=== PATIENT | male | born 1990 | race Caucasian/White ===

== ENCOUNTER 2019-11-08 14:18 | Outpatient (CLI) | payer OTHER, SELFPAY ==
--- NOTE | 2019-11-08 14:26 | XR_ITS ---
WS: [id number] CERVICAL SPINE 3 VIEWS HISTORY: NECK PAIN, DORSALGIA COMPARISON: None. Mild straightening of the normal cervical lordosis. Small endplate osteophytes. C7-T1 and the upper t horacic vertebral bodies are not well visualized. Lateral masses of C1 and C2 are aligned odontoid is intact. XR/XR cervical spine 3V* [id number] IMPRESSION: 1. C1-C6 demonstrate mild spondylosis. 2. Cervical thoracic junction is incompletely visualized.
--- NOTE | 2019-11-08 14:26 | XR_ITS ---
WS: [id number] THORACIC SPINE TECHNIQUE: AP and lateral views are performed. HISTORY: BACK PAIN, DORSALGIA COMPARISON: None available. Study is extremely limited by body habitus. This is an incomplete evaluation of the thoracic vertebra l bodies. There is mild anterior wedging in the lower thoracic vertebral bodies. Cannot confirm exact location but I suspect this anterior wedging is at T9, T10, T11 and T12. XR/XR thoracic spine 3V* [id number] IMPRESSION: 1. Technically very limited evaluation of the thoracic vertebral bodies. 2. Mild anterior wedging of several lower thoracic vertebral bodies, suspect T 9-T12 anterior wedging. Similar to the prior CTA from 06/01/2018.
== END 2019-11-08 14:19 | disposition home or self-care (01) ==
LOC: RADWPI 14:22
PROVIDERS: Visit Provider Nurse Practitioner
DX: M54.9 Dorsalgia, unspecified (principal); M47.812 Spondylosis without myelopathy or radiculopathy, cervical region
CPT/HCPCS: 72040; 72072